=== PATIENT | female | born 1980 | race Caucasian/White ===

== ENCOUNTER 2017-03-24 09:30 | Day surgery (SDC) | payer SELFPAY ==
[2017-03-17 18:06] VITALS: BMI 26.4
[2017-03-24] MEDS ORDERED: ROCURONIUM BROMIDE 50 MG/5 ML VIAL ONE ×2 (11:12)
[2017-03-24] MEDS ORDERED: fentaNYL CITRATE 250 MCG/5 ML VIAL ONE (11:12)
[2017-03-24] MEDS ORDERED: MIDAZOLAM HCL 2 MG/2 ML SINGLE DOSE VIAL ONE ×2 (11:13)
[2017-03-24] MEDS ORDERED: ACETAMINOPHEN INJECTION 100 ML IVPB ONE (11:17)
[2017-03-24] MEDS ORDERED: DESFLURANE GAS 240 ML BOTTLE IH ONE (11:18)
[2017-03-24] MEDS ORDERED: SCOPOLAMINE HYDROBROMIDE 1 PATCH PATCH.TD72 ONE (11:18)
[2017-03-24] MEDS ORDERED: EPINEPHrine/PF 1 MG/1 ML (1:1,000) AMPULE ONE ×5 (11:26→14:46)
[2017-03-24] MEDS ORDERED: LIDOCAINE HCL 1%, 10 MG/ML (20ML VIAL) ONE ×2 (11:26→14:45)
[2017-03-24] MEDS ORDERED: HEPARIN NA (PORCINE) 5,000 UNITS/ML 1ML VIAL ONE (11:50)
[2017-03-24] MEDS ORDERED: HEPARIN NA (PORCINE) 5,000 UNITS/ML 1ML VIAL SQ ONE (12:16)
[2017-03-24] MEDS ORDERED: ceFAZolin SODIUM 1 GM VIAL IVPB ONE (12:20)
[2017-03-24] MEDS ORDERED: BACITRACIN 15 GM TUBE TOPICAL OINTMENT ONE (13:01)
[2017-03-24] MEDS ORDERED: BACITRACIN 15 GM TUBE TOPICAL OINTMENT TP ONE (13:02)
[2017-03-24] MEDS ORDERED: GLYCOPYRROLATE 0.2 MG/1 ML VIAL ONE ×2 (16:09)
[2017-03-24] MEDS ORDERED: NEOSTIGMINE METHYLSULFATE 0.5 MG/ML - 10 ML MDV ONE (16:09)
[2017-03-24] MEDS ORDERED: PROMETHAZINE HCL 25 MG/1 ML VIAL IVPB PRN (16:36)
[2017-03-24] MEDS ORDERED: ONDANSETRON 4 MG/2 ML VIAL IVPUSH PRN (16:36)
[2017-03-24] MEDS ORDERED: oxyCODONE HCL 5 MG TABLET PO PRN (16:36)
[2017-03-24] MEDS ORDERED: LACTATED RINGERS SOLUTION 1,000 ML IV SCH (17:30)
[2017-03-24] MEDS ORDERED: ONDANSETRON 4 MG/2 ML VIAL IVPB PRN (17:30)
--- NOTE | 2017-03-24 18:31 | OP ---
DATE OF OPERATION: 03/24/2017 PREOPERATIVE DIAGNOSIS: Cosmetic lipodystrophy. POSTOPERATIVE DIAGNOSIS: Cosmetic lipodystrophy. PROCEDURE: Liposuction to abdomen, flanks, medial and lateral thighs. ATTENDING SURGEON: Flakita Garcia M.D. CENTER REP: None. The patient is marked in the holding area awake and aware of all areas of planned liposuction including those that are closer to the back and will be accessed from the back. The patient is aware of the placement of incisions for lipoaspiration. The patient is given 5000 units of subcutaneous heparin preoperatively. She is counseled on all risks, benefits, and alternatives to the procedure. She understands and agrees to proceed. She is given a gram of Ancef preoperatively. Sequential compression stockings and MARICHUY hose are applied. She is then brought to the operating room after induction of anesthesia. She is transferred to a prone position and all appropriate positioning aids are used. The patient's position is carefully checked by surgical and anesthesia teams. The patient is then prepped and draped in the standard surgical fashion. At this point a time-out is called and the patient and procedure sites are verified. Small stab wound incisions are made in multiple areas in order for access for both infiltration and liposuction. Infiltration is performed with the following wetting solution. As described, it is a liter of normal saline with 20 mL of 1% lidocaine plain and 1 ampule of 1:1000 epinephrine. A total of 5 liters are used for infiltration throughout the case spread over the proposed areas. A full 20 minutes is awaited in each area sequentially for hemostasis prior to performing of liposuction. Liposuction is performed in the following areas using the SAFE technique with both pre-tunneling and post-tunneling with a 4-mm basket-tip cannula without suction. After pre-tunneling was performed, liposuction was performed with the combination of 5-mm and 4-mm cannulas using Power Assisted liposuction system. From the posterior side while the patient is in the prone position, the areas of liposuction are right flank of 500 mL, left flank of 550 mL, the right outer thigh is 225 mL, the left outer thigh is 225 mL, the right inner thigh is 300 mL, and the left inner thigh is 300 mL. Completion of this, post-tunneling is performed with a 4-mm basket-tip cannula. The liposuction incisions are closed with a series of interrupted 5-0 nylon suture. Eyepatches and Tegaderm are used as dressings. The patient is then carefully repositioned in a supine position by first transferring her onto her stretcher and then onto the operative table once again. Cooper catheter at this point is placed. The patient is reprepped and draped entirely and the position is carefully checked by surgical and anesthesia teams. Similar stab wound incisions are made in the abdomen including the umbilicus and the pubic area as well as bilateral inguinal creases and several other areas in order to find access for wetting solution. Wetting solution is infiltrated and a full 20 minutes is awaited for its effect and liposuction is performed in the same SAFE technique by using a combination of 5-mm and 4-mm cannulas for and liposuction is then performed with Power-Assisted Micro-Aire liposuction system. The lipoaspirate is 2200 mL from the abdomen. An additional 250 mL is aspirated from the left inner thigh and an additional 300 mL is aspirated from the right inner thigh. Tunneling and minor touch-up liposuction is performed on the outer thighs from this position. The endpoint for all liposuction was smooth, even contour and the appearance of blood within the lipoaspirate of which there was very minimal. The liposuction holes were then closed with a series of interrupted 5-0 nylon suture. The incisions are dressed with Tegaderm, eyepatches, and a specialized fitted liposuction garment is then applied. The patient is awoken from anesthesia having tolerated the procedure well. She is entirely neurovascularly intact. She was transferred to recovery without complication. The Cooper catheter was removed at the end of the procedure. FLAKITA GARCIA M.D. [id number]
[2017-03-24 19:55] VITALS: BP 115/69; PULSE 104; TEMP 98.2
== END 2017-03-24 19:57 | disposition home or self-care (01) ==
LOC: JASUSAT 09:30
PROVIDERS: ATTEND Plastic Surgery
CPT/HCPCS: 84703; 94760; J1644